=== PATIENT | female | born 2000 | race Caucasian/White ===

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

== ENCOUNTER 2018-08-28 20:12 | Emergency (ER) | payer SELFPAY ==
[~2018-08-28] VITALS: Ht 175.2 cm; Wt 61.2 kg
[~2018-08-28 20:12] MED LIST: PRENATAL ONE D1 EACH PO
== END 2018-08-28 20:35 | disposition home or self-care (01) ==
LOC: ED 20:12
DX: Z32.01 Encounter for pregnancy test, result positive (principal); Z79.899 Other long term (current) drug therapy

== ENCOUNTER 2020-11-28 23:01 | Emergency (ER) | payer OTHER ==
[~2020-11-28] VITALS: Ht 170.1 cm; Wt 69.4 kg
[2020-11-29] MEDS ORDERED: AMOXICILLIN500 M2 PO (00:38)
== END 2020-11-29 00:50 | disposition home or self-care (01) ==
LOC: ED 23:01
DX: H66.91 Otitis media, unspecified, right ear (principal); F17.200 Nicotine dependence, unspecified, uncomplicated; Z79.899 Other long term (current) drug therapy

== ENCOUNTER → 2022-07-10 | Outpatient (CLI) | payer OTHER ==
[~2022-07-10] MED LIST changes: +AMOXICILLIN500 M2 PO
== END | disposition home or self-care (01) ==
LOC: RAD 13:14
PROVIDERS: ATTEND Chiropractor
DX: M48.061 Spinal stenosis, lumbar region without neurogenic claudication (principal); M40.46 Postural lordosis, lumbar region

== ENCOUNTER 2024-03-05 15:40 | Emergency (ER) | payer OTHER ==
[~2024-03-05] VITALS: Ht 167.6 cm; Wt 63.5 kg
[2024-03-05] MEDS ORDERED: BUPROPION HYDR150 M1 PO (15:52)
[2024-03-05] MEDS ORDERED: CLONAZEPAM0.5 M2 PO (15:53)
[2024-03-05] MEDS ORDERED: SERTRALINE HYD100 MG PO (15:53)
[2024-03-05] MEDS ORDERED: Lidocaine Hydrochloride 15 ML UDC PO ONE (16:55)
[2024-03-05] MEDS ORDERED: MG-AL HYDROXIDE/SIMETICONE 30 ML UDC PO ONE (16:55)
[2024-03-05] MEDS ORDERED: Ketorolac Tromethamine 30 MG/ML VIAL IM ONE (16:55)
[2024-03-05 17:02] LABS: BASO % 0.3 % (0.0-1.0); EOS % 0.6 % (1.0-4.0); LYMPH # 1.1 10*3/uL (1.3-4.4); LYMPH % 16.5 % (27.0-41.0); MEAN CELL VOLUME 92.6 fl (81.0-99.0); MEAN CORPUSCULAR HGB 29.6 pg (27.0-31.0); MONO # 0.6 10*3/uL (0.1-1.0); MONO % 8.4 % (3.0-9.0); NEUT % 74.1 % (47.0-73.0); PLATELET COUNT AUTOMATED 159 10*3/uL (130-400); RED BLOOD COUNT 4.32 10*6/uL (4.10-5.10); RED CELL DISTRI WIDTH 12.9 % (0-14.5); WHITE BLOOD COUNT 6.8 10*3/uL (4.8-10.8)
[2024-03-05 17:29] LABS: ALKALINE PHOSPHATASE 79 U/L (46-116); BUN 7 mg/dl (9-23); CHLORIDE 103 mmol/L (98-107); LIPASE 27 U/L (12-53); POTASSIUM 3.3 mmol/L (3.4-5.1); SGPT/ALT 8 U/L (5-49); TOTAL PROTEIN 6.8 gm/dL (6.0-8.0)
== END 2024-03-05 18:32 | disposition home or self-care (01) ==
LOC: ED 15:40
PROVIDERS: Emergency Medicine
DX: R07.89 Other chest pain (principal); R10.11 Right upper quadrant pain; R10.13 Epigastric pain; F17.200 Nicotine dependence, unspecified, uncomplicated

== ENCOUNTER 2024-10-20 18:09 | Emergency (ER) | payer OTHER ==
[~2024-10-20] VITALS: Ht 167.6 cm; Wt 68.0 kg
[~2024-10-20 18:09] MED LIST changes: +BUPROPION HYDR150 M1 PO; +CLONAZEPAM0.5 M2 PO; +SERTRALINE HYD100 MG PO
== END 2024-10-20 18:48 | disposition home or self-care (01) ==
LOC: ED 18:09
DX: Z04.89 Encounter for examination and observation for other specified reasons (principal); Z79.899 Other long term (current) drug therapy